=== PATIENT | female | born 1960 | race Caucasian/White ===

== ENCOUNTER 2021-01-27 15:43 | Emergency (ER) | payer BC ==
[~2021-01-27] VITALS: Ht 167.6 cm; Wt 79.8 kg
[2021-01-27] MEDS ORDERED: CASIRIVIMAB/IMDEVIMAB 10 ML in SODIUM CHLORIDE 0.9% 100 ML IV ONE (16:00)
[2021-01-27 17:04] VITALS: BP 107/54
== END 2021-01-27 17:09 | disposition home or self-care (01) ==
LOC: ER 16:05
DX: U07.1 COVID-19 (principal); I10 Essential (primary) hypertension; E03.9 Hypothyroidism, unspecified
CPT/HCPCS: 99283; J7050